=== PATIENT | male | born 1965 | race Caucasian/White ===

== ENCOUNTER 2020-04-25 09:57 | Emergency (ER) | payer BC ==
[~2020-04-25] VITALS: Ht 185.4 cm; Wt 106.8 kg
[2020-04-25] MEDS ORDERED: ondansetron/PF 4mg/2ml inj IV ONE (10:00)
[2020-04-25] MEDS ORDERED: ketorolac trometh. 30mg/ml inj. IV ONE (10:00)
[2020-04-25] MEDS ORDERED: normal saline 1000ML IV soln IVB ONE (10:00)
[2020-04-25] MEDS ORDERED: HYDROmorphone inj. 0.5 MG/0.5 ML DISP.SYRIN IV PRN (10:00)
[2020-04-25] MEDS ORDERED: ONDA4TAB6 PO (10:20)
[2020-04-25] MEDS ORDERED: TADA20TA PO (10:20)
[2020-04-25] MEDS ORDERED: KETO10TA2 PO (10:20)
[2020-04-25] MEDS ORDERED: HYDR-3965 PO (10:20)
[2020-04-25 10:38] VITALS: BP 152/91
[2020-04-25 10:43] LABS: EOSINOPHILS # (AUTO) 0.1 X10'3 (0-0.9); MEAN PLATELET VOLUME 7.8 FL (7.4-10.4); NEUTROPHILS % (AUTO) 85.9 % (42-75)
[2020-04-25 10:45] LABS: BASOPHILS % (AUTO) 0.4 % (0-1); EOSINOPHILS % (AUTO) 0.8 % (0-6); HEMATOCRIT 43.2 % (42.0-52.0); LYMPHOCYTES # (AUTO) 0.9 X10'3 (1.1-4.8); MEAN CORPUSCULAR HEMOGLOBIN 31.6 PG (27.0-31.0); MEAN CORPUSCULAR HGB CONC 34.7 g/dL (33.0-36.5); MEAN CORPUSCULAR VOLUME 91.1 FL (78-98); MONOCYTES # (AUTO) 0.5 X10'3 (0-0.9); MONOCYTES % (AUTO) 4.9 % (2-12); NEUTROPHILS # (AUTO) 9.2 X10'3 (1.8-7.7); PLATELET COUNT 251 X10'3 (140-440); RED BLOOD COUNT 4.74 X10'6 (4.70-6.10); RED CELL DISTRIBUTION WIDTH 12.9 % (11.5-14.5); WHITE BLOOD COUNT 10.7 X10'3 (4.5-11.0)
[2020-04-25 10:55] LABS: ALANINE AMINOTRANSFERASE 45 U/L (12-78); ALBUMIN 3.7 G/DL (3.4-5.0); ALKALINE PHOSPHATASE 72 IU/L (46-116); ANION GAP 6 (8-16); ASPARTATE AMINO TRANSFERASE 30 U/L (10-37); BILIRUBIN,TOTAL 0.5 MG/DL (0.1-1.0); BLOOD UREA NITROGEN 18 MG/DL (7-18); BUN/CREATININE RATIO 14.4 (5.4-32.0); CALCIUM 8.4 MG/DL (8.5-10.1); CHLORIDE 105 MMOL/L (99-107); CREATININE 1.25 MG/DL (0.60-1.10); GLUCOSE 162 MG/DL (70-104); LIPASE 126 U/L (73-393); POTASSIUM 4.2 MMOL/L (3.5-5.1); SODIUM 139 MMOL/L (135-145); TOTAL CARBON DIOXIDE 27.6 MMOL/L (24-32); TOTAL PROTEIN 7.5 G/DL (6.4-8.2); eGFR 60 ML/MIN
[2020-04-25 11:11] LABS: CLARITY,URINE CLOUDY (Clear); COLOR,URINE YELLOW (Yellow); GLUCOSE, URINE NEGATIVE (Neg); KETONES,URINE NEGATIVE (Neg); LEUKOCYTE ESTERASE ,URINE NEGATIVE (Neg); NITRITES, URINE NEGATIVE (Neg); OCCULT BLOOD,URINE LARGE (Neg); PROTEIN,URINE NEGATIVE (Neg); UROBILINOGEN,URINE 0.2 E.U/dL (0.2-1.0)
[2020-04-25 11:14] LABS: UA COLLECTION TYPE CLN CATCH MIDSTREAM
--- NOTE | 2020-04-25 11:15 | NUR ---
breaking primary nurse reese at this time.vitals stable hr 52,spo2 99% on ra,bp 141/87.
[2020-04-25 11:21] LABS: BACTERIA,URINE NONE SEEN /HPF (Neg); RBC,URINE TNTC /HPF (0-2); SQUAMOUS EPITHELIAL CELL,UR FEW /LPF (FEW); WBC,URINE 0-4 /HPF (0-4)
[2020-04-25 11:22] LABS: MUCUS STRANDS MANY /LPF (Neg)
== END 2020-04-25 11:56 | disposition home or self-care (01) ==
LOC: EEVIPCON 09:58 → ER 09:58
DX: N20.1 Calculus of ureter (principal); R10.31 Right lower quadrant pain; R11.2 Nausea with vomiting, unspecified; N18.9 Chronic kidney disease, unspecified; Z87.442 Personal history of urinary calculi; Z90.49 Acquired absence of other specified parts of digestive tract; Z98.890 Other specified postprocedural states; Z88.5 Allergy status to narcotic agent; Z79.899 Other long term (current) drug therapy
CPT/HCPCS: 36415; 74176; 80053; 81001; 83690; 85025; 96361; 96374; 99284; J1885; J7030

== ENCOUNTER 2021-01-21 13:23 | Inpatient (IN) | payer BC ==
[~2021-01-21] VITALS: Ht 185.4 cm; Wt 110.0 kg
[~2021-01-21 13:23] MED LIST: KETO10TA2 PO; ONDA4TAB6 PO; TADA20TA PO
[2021-01-21] MEDS ORDERED: dexamethasone sod phosphate 10mg/ml inj IV STA (14:12)
[2021-01-21] MEDS ORDERED: ALBUTEROL INHALER 1 PUFF/90 MCG INHALER IH PRN (14:15)
[2021-01-21] MEDS ORDERED: azithromycin/NS 500mg/250ml 250 ML IV ONE (14:15)
[2021-01-21] MEDS ORDERED: normal saline 1000ML IV soln IVB ONE (14:15)
[2021-01-21] MEDS ORDERED: iohexol 350MG/ML 100ml bottle IV ONE (14:23)
--- NOTE | 2021-01-21 14:35 | NUR ---
O2 Sat at Room Air 89% resting, O2 sat at Room Air 84% while ambulating, Recover O2 sat while ambulating on 4L NC 92%.
[2021-01-21 14:50] LABS: C-REACTIVE PROTEIN 13.35 MG/DL (0.0-0.5); D-DIMER 2.42 MG/L FEU (0-0.50)
[2021-01-21] MEDS ORDERED: enoxaparin 100mg/ml syringe SUBCUT ONE (15:25)
[2021-01-21 15:39] LABS: BASOPHILS % (AUTO) 0.4 % (0-1); EOSINOPHILS # (AUTO) 0.1 X10'3 (0-0.9); EOSINOPHILS % (AUTO) 1.2 % (0-6); HEMATOCRIT 39.9 % (42.0-52.0); HEMOGLOBIN 13.9 g/dl (14.0-17.9); LYMPHOCYTES # (AUTO) 0.5 X10'3 (1.1-4.8); LYMPHOCYTES % (AUTO) 10.1 % (21-51); MEAN CORPUSCULAR HEMOGLOBIN 32.4 PG (27.0-31.0); MEAN CORPUSCULAR HGB CONC 34.8 g/dL (33.0-36.5); MEAN CORPUSCULAR VOLUME 93.2 FL (78-98); MEAN PLATELET VOLUME 7.6 FL (7.4-10.4); MONOCYTES # (AUTO) 0.3 X10'3 (0-0.9); NEUTROPHILS # (AUTO) 4.4 X10'3 (1.8-7.7); NEUTROPHILS % (AUTO) 83.3 % (42-75); PLATELET COUNT 375 X10'3 (140-440); RED BLOOD COUNT 4.28 X10'6 (4.70-6.10); RED CELL DISTRIBUTION WIDTH 13.1 % (11.5-14.5); WHITE BLOOD COUNT 5.3 X10'3 (4.5-11.0)
[2021-01-21 15:44] LABS: ALANINE AMINOTRANSFERASE 38 U/L (12-78); ALBUMIN 2.5 G/DL (3.4-5.0); ALBUMIN/GLOBULIN RATIO 0.5 (1.1-1.5); ALKALINE PHOSPHATASE 65 IU/L (46-116); ANION GAP 8 (8-16); ASPARTATE AMINO TRANSFERASE 52 U/L (10-37); BILIRUBIN,TOTAL 0.6 MG/DL (0.1-1.0); BLOOD UREA NITROGEN 15 MG/DL (7-18); BUN/CREATININE RATIO 12.3 (5.4-32.0); CALCIUM 8.5 MG/DL (8.5-10.1); CHLORIDE 102 MMOL/L (99-107); CREATININE 1.22 MG/DL (0.60-1.10); GLUCOSE 174 MG/DL (70-104); POTASSIUM 3.7 MMOL/L (3.5-5.1); SODIUM 140 MMOL/L (135-145); TOTAL CARBON DIOXIDE 29.6 MMOL/L (24-32); TOTAL PROTEIN 7.5 G/DL (6.4-8.2); eGFR 61 ML/MIN
[2021-01-21] MEDS ORDERED: potassium Cl 20 mEq SR tablet PO PRN ×2 (16:35)
[2021-01-21] MEDS ORDERED: acetaminophen 325mg tablet PO PRN (16:35)
[2021-01-21] MEDS ORDERED: potassium Cl 40MEQ/1/2NS 520ml 520 ML IV PRN ×2 (16:35)
[2021-01-21] MEDS ORDERED: mag hydrox/Alum hydrox/simeth 30ml oral suspension PO PRN (16:35)
[2021-01-21] MEDS ORDERED: ondansetron/PF 4mg/2ml inj IV PRN (16:35)
[2021-01-21] MEDS ORDERED: magnesium hydroxide 30ml (MOM) UD suspension PO PRN (16:35)
[2021-01-21] MEDS ORDERED: BENZ-49 PO (16:38)
[2021-01-21] MEDS ORDERED: CHOL100017 PO (16:38)
[2021-01-21] MEDS ORDERED: ZINC50TA67 PO (16:38)
[2021-01-21] MEDS ORDERED: MULT-1085 PO (16:39)
[2021-01-21] MEDS ORDERED: benzonatate 100mg capsule PO PRN (17:10)
[2021-01-21] MEDS ORDERED: benzonatate 100mg capsule PO ONE (17:45)
[2021-01-21] MEDS: K and/or MAG REPLACEMENT MC SCH (19:44)
[2021-01-21] MEDS: docusate sod 100mg capsule PO SCH (19:45)
[2021-01-21] MEDS: dexamethasone inj 6 MG in normal saline 50ml IV soln 50 ML IV SCH (21:28)
[2021-01-21 23:00] VITALS: BP 122/71
[2021-01-22 02:00] VITALS: BP 128/81
[2021-01-22] MEDS ORDERED: enoxaparin 80mg/0.8ml syringe SUBCUT SCH (05:00)
[2021-01-22] MEDS ORDERED: enoxaparin 30mg/0.3ml syringe SUBCUT SCH (05:00)
[2021-01-22 06:00] VITALS: BP 118/73
[2021-01-22] MEDS ORDERED: zinc sulfate 220mg capsule PO SCH (08:00)
[2021-01-22] MEDS: K and/or MAG REPLACEMENT MC SCH (08:00)
[2021-01-22] MEDS ORDERED: cholecalciferol (vitamin D3) 1,000 unit (25mcg) tablet PO SCH (08:00)
[2021-01-22] MEDS: docusate sod 100mg capsule PO SCH ×2 (08:00→08:24)
[2021-01-22] MEDS ORDERED: multivitamins, therapeutics tablet PO SCH (08:00)
[2021-01-22 08:18] LABS: BASOPHILS % (AUTO) 0.3 % (0-1); EOSINOPHILS % (AUTO) 0 % (0-6); HEMATOCRIT 36.8 % (42.0-52.0); HEMOGLOBIN 13.2 g/dl (14.0-17.9); LYMPHOCYTES # (AUTO) 0.4 X10'3 (1.1-4.8); LYMPHOCYTES % (AUTO) 7.7 % (21-51); MEAN CORPUSCULAR HEMOGLOBIN 33.4 PG (27.0-31.0); MEAN CORPUSCULAR HGB CONC 35.8 g/dL (33.0-36.5); MEAN CORPUSCULAR VOLUME 93.4 FL (78-98); MEAN PLATELET VOLUME 7.5 FL (7.4-10.4); MONOCYTES # (AUTO) 0.2 X10'3 (0-0.9); MONOCYTES % (AUTO) 3.4 % (2-12); NEUTROPHILS # (AUTO) 4.3 X10'3 (1.8-7.7); NEUTROPHILS % (AUTO) 88.6 % (42-75); PLATELET COUNT 434 X10'3 (140-440); RED BLOOD COUNT 3.94 X10'6 (4.70-6.10); RED CELL DISTRIBUTION WIDTH 12.7 % (11.5-14.5); WHITE BLOOD COUNT 4.8 X10'3 (4.5-11.0)
[2021-01-22] MEDS: dexamethasone inj 6 MG in normal saline 50ml IV soln 50 ML IV SCH (08:24)
[2021-01-22 08:56] LABS: ALANINE AMINOTRANSFERASE 31 U/L (12-78); ALBUMIN 2.2 G/DL (3.4-5.0); ALBUMIN/GLOBULIN RATIO 0.5 (1.1-1.5); ALKALINE PHOSPHATASE 57 IU/L (46-116); ANION GAP 12 (8-16); ASPARTATE AMINO TRANSFERASE 33 U/L (10-37); BILIRUBIN,TOTAL 0.4 MG/DL (0.1-1.0); BLOOD UREA NITROGEN 15 MG/DL (7-18); BUN/CREATININE RATIO 13.4 (5.4-32.0); CALCIUM 8.2 MG/DL (8.5-10.1); CHLORIDE 104 MMOL/L (99-107); CREATININE 1.12 MG/DL (0.60-1.10); GLUCOSE 236 MG/DL (70-104); POTASSIUM 3.4 MMOL/L (3.5-5.1); SODIUM 141 MMOL/L (135-145); TOTAL CARBON DIOXIDE 24.7 MMOL/L (24-32); TOTAL PROTEIN 6.9 G/DL (6.4-8.2); eGFR 68 ML/MIN
[2021-01-22 10:00] VITALS: BP 138/86
[2021-01-22] MEDS ORDERED: DEC4T PO (10:43)
[2021-01-22] MEDS ORDERED: ALBU8HFA PO (10:43)
[2021-01-22] MEDS ORDERED: APIX5TAB3 PO (10:43)
--- NOTE | 2021-01-22 11:52 | NUR ---
PAGER ID: [phone] MESSAGE: [phone] Gay asking if we can repeat crp & d dimer before sending him home. [id number] [phone]
[2021-01-22 12:42] LABS: D-DIMER 0.75 MG/L FEU (0-0.50)
== END 2021-01-22 16:35 | disposition home or self-care (01) | DRG 175 ==
LOC: ER 13:24 → ED HOLD 16:52 → ORTHO 4S 23:17
PROVIDERS: ADMIT Internal Medicine; ATTEND Family Medicine
PROC: B32T1ZZ Computerized Tomography (CT Scan) of Left Pulmonary Artery using Low Osmolar Contrast (ICD-10-PCS; principal; 2021-01-21)
PROC: B3201ZZ Computerized Tomography (CT Scan) of Thoracic Aorta using Low Osmolar Contrast (ICD-10-PCS; 2021-01-21)
PROC: B32S1ZZ Computerized Tomography (CT Scan) of Right Pulmonary Artery using Low Osmolar Contrast (ICD-10-PCS; 2021-01-21)
DX: I26.93 Single subsegmental thrombotic pulmonary embolism without acute cor pulmonale (principal); J96.01 Acute respiratory failure with hypoxia; U07.1 COVID-19; J12.82 Pneumonia due to coronavirus disease 2019; R59.1 Generalized enlarged lymph nodes; Z88.6 Allergy status to analgesic agent; Z79.899 Other long term (current) drug therapy; Z87.442 Personal history of urinary calculi; Z90.49 Acquired absence of other specified parts of digestive tract; Z79.01 Long term (current) use of anticoagulants
CPT/HCPCS: 36415; 71045; 71275; 80053; 84145; 85025; 85379; 86140; 87081; 93005; 94640; 94760; 96372; 96374; 96375; 99291; G0378; J0456; J1100; J1650; J7030; Q9967